=== PATIENT | female | born 1945 | race Caucasian/White ===

== ENCOUNTER 2017-09-07 11:24 | Emergency (ER) | payer MEDICARE ==
--- NOTE | 2017-09-07 12:44 | C.PDOC ---
History Of Present Illness 72 Y/O FEMALE BROUGHT TO ED BY DAUGHTER WITH C/O RIGHT FOOT PAIN AND SWELLING FOR 4 DAYS. PT/DAUGHTER REPORT THAT PT POSSIBLY STEPPED ON WOODEN FOREIGN BODY. ALSO REPORTS SWELLING TO RIGHT LOWER LEG. DENIES FEVER, CHILLS, CHEST PAIN, SOB. PT NOTES SHE TAKES WATER PILL. Time Seen by Provider: 09/07/17 12:26 Chief Complaint (Nursing): Lower Extremity Problem/Injury History Per: Patient, Family History/Exam Limitations: language barrier Onset/Duration Of Symptoms: Days (4) Current Symptoms Are (Timing): Still Present Recent travel outside of the [place]: No Past Medical History Reviewed: Historical Data, Nursing Documentation, Vital Signs Vital Signs: Last Vital Signs Temp 98.6 F 09/07/17 11:46 Pulse 80 09/07/17 11:46 Resp 20 09/07/17 11:46 BP 130/85 09/07/17 11:46 Pulse Ox 97 09/07/17 14:49 - Medical History PMH: HTN, Hypercholesterolemia Surgical History: Cholecystectomy Family History: States: Unknown Family Hx - Social History Hx Alcohol Use: No Hx Substance Use: No - Immunization History Hx Tetanus Toxoid Vaccination: No Hx Influenza Vaccination: No Hx Pneumococcal Vaccination: No Review Of Systems Except As Marked, All Systems Reviewed And Found Negative. Constitutional: Negative for: Fever, Chills Cardiovascular: Negative for: Chest Pain, Palpitations Respiratory: Negative for: Cough, Shortness of Breath, Wheezing Gastrointestinal: Negative for: Nausea, Vomiting Musculoskeletal: Positive for: Foot Pain (R) Skin: Positive for: Other (R FOOT AND LOWER LEG SWELLING). Negative for: Rash Neurological: Negative for: Weakness, Numbness Physical Exam - Physical Exam Appears: Non-toxic, No Acute Distress Skin: Normal Color, Warm, Dry Head: Atraumatic, Normacephalic Chest: Symmetrical Cardiovascular: Rhythm Regular Respiratory: Normal Breath Sounds (CTA), No Accessory Muscle Use, No Rales, No Rhonchi, No Stridor, No Wheezing Gastrointestinal/Abdominal: Soft, No Tenderness, No Guarding, No Rebound Back: Normal Inspection Extremity: Normal ROM, Capillary Refill (< 2 SEC. ), No Deformity, Other ( MARKED SWELLING TO RIGHT LOWER LEG AND FOOT. NON-PITTING. SKIN NORMAL: NO PUNCTURE WOUND, PALPABLE FOREIGN BODY, OR REDNESS TO RIGHT FOOT.) Extremity: Bilateral: Normal Color And Temperature Pulses: Left Dorsalis Pedis: Normal, Right Dorsalis Pedis: Normal Neurological/Psych: Oriented x3, Normal Speech, Normal Cognition ED Course And Treatment - Laboratory Results Result Diagrams: 09/07/17 13:49 09/07/17 13:49 O2 Sat by Pulse Oximetry: 97 (RA) Pulse Ox Interpretation: Normal - Other Rad RIGHT FOOT X-RAY X-Ray: Interpreted by Me, Viewed By Me Interpretation: NEGATIVE Progress - Re-Evaluation Re-evaluation Note: 09/07/17 12:37 FOOT X-RAY, R LEG VENOUS DUPLEX SCAN, CXR, BLOODWORK ORDERED. 09/07/17 14:48 D/W PODIATRY RESIDENT FARHANA MOYA - Data Reviewed Data Reviewed: Lab, Diagnostic imaging - Continuity of Care Discussed pt. case with data power consultant/specialty: Other (PODIATRY) Disposition - Disposition Referrals: [facility] [Outside] [facility] [Outside] Disposition: HOME/ ROUTINE Disposition Time: 15:16 Condition: GOOD Additional Instructions: RETURN IN 1 WEEK FOR REPEAT VENOUS DUPLEX FOR EVALUATION OF LEG SWELLING. RETURN IF WORSENING SYMPTOMS. Prescriptions: Naproxen 500 mg PO BID #30 tab Instructions: Leg Edema (ED) Forms: [facility] (Faroese) - Clinical Impression Clinical Impression: Foot pain, Leg swelling - Scribe Statement The provider has reviewed the documentation as recorded by the Scribsanto Dawkins All medical record entries made by the Scribe were at my direction and personally dictated by me. I have reviewed the chart and agree that the record accurately reflects my personal performance of the history, physical exam, medical decision making, and the department course for this patient. I have also personally directed, reviewed, and agree with the discharge instructions and disposition.
--- NOTE | 2017-09-07 13:10 | RAD ---
PROCEDURE: Left Foot Radiographs. HISTORY: SWELLING RO FB COMPARISON: None available. FINDINGS: BONES: No acute displaced fracture. JOINTS: No dislocation. SOFT TISSUES: Soft tissue swelling. No evidence of radiopaque foreign body. OTHER FINDINGS: None. IMPRESSION: Soft tissue swelling. No acute displaced fracture or dislocation identified. If symptoms persist, or if there is continued clinical concern, x-ray follow-up in 7-10 days should be considered.
--- NOTE | 2017-09-07 13:26 | RAD ---
HISTORY: SOB COMPARISON: None available. TECHNIQUE: Chest, one view. FINDINGS: Examination limited by habitus. LUNGS: Mild bibasilar atelectasis. Please note that chest x-ray has limited sensitivity for the detection of pulmonary masses. PLEURA: No significant pleural effusion identified. No definite pneumothorax . CARDIOVASCULAR: Mild cardiomegaly. Atherosclerotic calcifications. OSSEOUS STRUCTURES: Osseous demineralization. Degenerative changes. VISUALIZED UPPER ABDOMEN: Unremarkable. OTHER FINDINGS: None. IMPRESSION: Mild cardiomegaly. Mild bibasilar atelectasis.
[2017-09-07 13:57] LABS: BASO # 0.1 K/uL (0.0-0.2); BASO % 0.9 % (0.0-2.0); EOS % 0.2 % (0.0-4.0); HEMATOCRIT 37.9 % (34.0-47.0); LYMPH # 2.4 K/uL (1.0-4.3); LYMPH % 29.1 % (20.0-40.0); MEAN CELL VOLUME 80.4 fL (81.0-99.0); MEAN CORPUSCULAR HEMOGLOBIN 26.5 pg (27.0-31.0); MEAN PLATELET VOLUME 7.2 fL (7.2-11.7); MONO # 0.7 K/uL (0.0-0.8); MONO % 8.5 % (0.0-10.0); NRBC % 0.1 % (0.0-2.0); WHITE BLOOD COUNT 8.4 K/uL (4.8-10.8)
[2017-09-07 14:08] LABS: CHLORIDE 101 mmol/L (98-107)
[2017-09-07 14:09] LABS: POTASSIUM 4.1 mmol/L (3.6-5.2); SODIUM 137 mmol/L (132-148)
[2017-09-07 14:11] LABS: GFR AFRICAN-AMERICAN > 60
[2017-09-07 14:12] LABS: BLOOD UREA NITROGEN 15 mg/dL (7-17); CALCIUM 9.3 mg/dl (8.6-10.4); CARBON DIOXIDE 26 mmol/L (22-30); GLUCOSE,RANDOM 92 mg/dL (65-105)
[2017-09-07 15:27] VITALS: BP 130/80; PULSE 78; RESP 18; TEMP 98; O2SAT 100
--- NOTE | 2017-09-08 14:17 | VASCLAB ---
PROCEDURE: Right Lower Extremity Venous Duplex Exam. HISTORY: Swelling PRIORS: None. TECHNIQUE: Right common femoral, femoral, popliteal and posterior tibial, peroneal and great saphenous veins were evaluated. Flow was assessed with color Doppler, compressibility, assessment of phasic flow and augmentation response. Report prepared by CRISTA Hernandez FINDINGS: RIGHT: 1. Common Femoral Vein: 1.1. Compressibility - Fully compressible: Thrombus - None: Flow - Phasic: Augmentation -Normal: Reflux - None. 2. Femoral Vein: 2.1. Compressibility - Fully compressible: Thrombus - None: Flow - Phasic: Augmentation -Normal: Reflux - None. 3. Popliteal Vein: 3.1. Compressibility - Fully compressible: Thrombus - None: Flow - Phasic: Augmentation -Normal: Reflux - None. 4. Posterior Tibial Vein: 4.1. Compressibility - Fully compressible: Thrombus - None: Flow - Phasic: Augmentation -Normal: Reflux - None. 5. Peroneal Vein: 5.1. Compressibility - Fully compressible: Thrombus - None: Flow - Phasic: Augmentation -Normal: Reflux - None. 6. Great Saphenous Vein: 6.1. Compressibility - Fully compressible: Thrombus -None: Flow - Phasic: Augmentation - Normal: Reflux - None. OTHER FINDINGS: IMPRESSION: No evidence of deep or superficial vein thrombosis of the right lower extremity with excellent venous flow. Normal valve function noted of the right side. Normal venous flow noted in the left common femoral vein.
== END 2017-09-07 15:26 | disposition home or self-care (01) ==
LOC: EDBD 11:24 → C.ER 11:24
DX: M79.671 Pain in right foot (principal); M79.89 Other specified soft tissue disorders